=== PATIENT | male | born 1990 | race Caucasian/White ===

== ENCOUNTER 2017-04-26 23:07 | Emergency (ER) | payer OTHER ==
[2017-04-26 23:11] VITALS: BP 135/63; PULSE 117; RESP 18; TEMP 98; O2SAT 96
[2017-04-26] MEDS ORDERED: SODIUM CHLOR 0.9% 1000 ML INJ 1,000 ML IV SCH (23:12)
[2017-04-26] MEDS ORDERED: HALOPERIDOL LACTATE 5 MG/ML AMP IM ONE (23:15)
[2017-04-26] MEDS ORDERED: SODIUM CHLORIDE 0.9% FLUSH 10 ML FLUSH IV FLUSH PRN (23:15)
[2017-04-26] MEDS ORDERED: diphenhydrAMINE HCL 50 MG/ML VIAL IM ONE (23:15)
--- NOTE | 2017-04-26 23:16 | PD ---
HPI Chief Complaint: ams Time Seen by Provider: 23:12 Travel History International Travel<30 days: No Contact w/Intl Traveler<30days: No Traveled to known affect area: No History of Present Illness HPI This is a 26-year-old male who presents via EMS for evaluation of altered mental status. According to EMS the patient was found agitated, combative, fighting with 10 police officers. He received 2 mg of IM Versed prior to arrival. Paramedics report that family members said that he was acting normally 4 hours ago and they know that he has been drinking tonight. They are uncertain about any other ingestion. He had no evidence of trauma. Upon initial examination here he is combative, threatening, screaming, spitting. Shortly after arrival he has started to calm down, likely secondary to Versed effectiveness. No other history is available at this time. [facility] Social History Alcohol Use: Yes Tobacco Use: No (Unknown) Substance Use: No (Unknown) Allergies-Medications (Allergen,Severity, Reaction): Coded Allergies: No Known Allergies (Unverified , 04/26/17) Reported Meds & Prescriptions Reported Meds & Active Scripts Active Active Prescriptions or Reported Medications Unobtainable Review of Systems ROS Limitations: Clinical Condition, Combative Except as stated in HPI: all other systems reviewed are Neg Physical Exam Exam Limitations: Clinical Condition, Combative Narrative GENERAL: Well-developed well-nourished male who is combative, agitated, cursing , spitting on initial examination. Cervical collar is in place. SKIN: Warm and dry. HEAD: Atraumatic. Normocephalic. EYES: Pupils equal and round. No scleral icterus. No injection or drainage. ENT: No nasal bleeding or discharge. Mucous membranes pink and moist. NECK: Trachea midline. No JVD. CARDIOVASCULAR: Regular rate and rhythm. No murmur appreciated. RESPIRATORY: No accessory muscle use. Clear to auscultation. Breath sounds equal bilaterally. GASTROINTESTINAL: Abdomen soft, non-tender, nondistended. Hepatic and splenic margins not palpable. MUSCULOSKELETAL: No obvious deformities. No clubbing. No cyanosis. No edema. NEUROLOGICAL: Awake and alert. No obvious cranial nerve deficits. Motor grossly within normal limits. Data Data Last Documented VS Vital Signs Date Time Temp Pulse Resp B/P (MAP) Pulse Ox O2 Delivery O2 Flow Rate FiO2 04/27/17 01:09 96 15 120/59 (79) 97 Room Air 04/26/17 23:11 98.0 Orders Orders Complete Blood Count With Diff (04/26/17 23:12) Comprehensive Metabolic Panel (04/26/17 23:12) Creatine Kinase (Cpk) (04/26/17 23:12) Thyroid Stimulating Hormone (04/26/17 23:12) Ct Brain W/O Iv Contrast(Rout) (04/26/17 23:12) Blood Glucose (04/26/17 23:12) Ecg Monitoring (04/26/17 23:12) Iv Access Insert/Monitor (04/26/17 23:12) Oximetry (04/26/17 23:12) Sodium Chloride 0.9% Flush (Ns Flush) (04/26/17 23:15) Sodium Chlor 0.9% 1000 Ml Inj (Ns 1000 M (04/26/17 23:12) Drug Screen, Random Urine (04/26/17 23:12) Alcohol (Ethanol) (04/26/17 23:12) Haloperidol Inj (Haldol Inj) (04/26/17 23:15) Diphenhydramine Inj (Benadryl Inj) (04/26/17 23:15) Ct Cerv Spine W/O Contrast (04/26/17 ) CKMB (04/26/17 23:25) CKMB% (04/26/17 23:25) Labs Laboratory Tests Test 04/26/17 23:25 White Blood Count 8.3 TH/MM3 Red Blood Count 4.74 MIL/MM3 Hemoglobin 14.7 GM/DL Hematocrit 40.8 % Mean Corpuscular Volume 86.1 FL Mean Corpuscular Hemoglobin 31.0 PG Mean Corpuscular Hemoglobin Concent 36.0 % Red Cell Distribution Width 13.2 % Platelet Count 263 TH/MM3 Mean Platelet Volume 9.9 FL Neutrophils (%) (Auto) 63.2 % Lymphocytes (%) (Auto) 28.7 % Monocytes (%) (Auto) 5.9 % Eosinophils (%) (Auto) 1.1 % Basophils (%) (Auto) 1.1 % Neutrophils # (Auto) 5.2 TH/MM3 Lymphocytes # (Auto) 2.4 TH/MM3 Monocytes # (Auto) 0.5 TH/MM3 Eosinophils # (Auto) 0.1 TH/MM3 Basophils # (Auto) 0.1 TH/MM3 CBC Comment AUTO DIFF Differential Comment AUTO DIFF CONFIRMED Platelet Estimate NORMAL Platelet Morphology Comment NORMAL Blood Urea Nitrogen 20 MG/DL Creatinine 1.84 MG/DL Random Glucose 110 MG/DL Total Protein 8.5 GM/DL Albumin 4.5 GM/DL Calcium Level 8.9 MG/DL Alkaline Phosphatase 46 U/L Aspartate Amino Transf (AST/SGOT) 32 U/L Alanine Aminotransferase (ALT/SGPT) 27 U/L Total Bilirubin 0.6 MG/DL Sodium Level 138 MEQ/L Potassium Level 3.9 MEQ/L Chloride Level 103 MEQ/L Carbon Dioxide Level 19.5 MEQ/L Anion Gap 16 MEQ/L Estimat Glomerular Filtration Rate 44 ML/MIN Total Creatine Kinase 352 U/L Creatine Kinase MB 1.5 NG/ML Creatine Kinase MB % 0.4 % Thyroid Stimulating Hormone 3rd Gen 1.920 uIU/ML Ethyl Alcohol Level 201 MG/DL [facility] Medical Decision Making Medical Screen Exam Complete: Yes Emergency Medical Condition: Yes Medical Record Reviewed: Yes Differential Diagnosis Sympathomimetic drug abuse versus intoxication versus encephalitis versus closed head injury versus meningitis versus metabolic derangement versus acute psychosis Narrative Course Lab work, CT brain and cervical spine, EKG have been ordered. The patient will be given IV fluids as well as Benadryl, Haldol. CT imaging reveals no acute abnormalities. Lab work is notable for a BUN of 20 , creatinine 1.84, GFR 44, total CK 352, alcohol level 201. The patient will be given IV hydration. He will remain here until he is clinically sober and then he will be discharged. Diagnosis Primary Impression: Alcohol intoxication Med/Other Pt SpecificInfo: No Change to Meds Scripts Unable to Obtain Active Prescriptions or Reported Meds Disposition: 01 DISCHARGE HOME Condition: Stable [place] Apr 26, 2017 23:16
[2017-04-26 23:45] VITALS: RESP 18; O2SAT 96
[2017-04-27 00:06] LABS: AUTOMATED NEUTROPHIL # 5.2 TH/MM3 (1.8-7.7); BASOPHIL # 0.1 TH/MM3 (0-0.2); BASOPHIL % 1.1 % (0.0-2.0); EOSINOPHIL # 0.1 TH/MM3 (0-0.4); EOSINOPHIL % 1.1 % (0.0-4.0); HEMATOCRIT 40.8 % (39.0-51.0); HEMOGLOBIN 14.7 GM/DL (13.0-17.0); LYMPH % 28.7 % (9.0-44.0); LYMPHOCYTE # 2.4 TH/MM3 (1.0-4.8); MEAN CELL VOLUME 86.1 FL (80.0-100.0); MEAN PLATELET VOLUME 9.9 FL (7.0-11.0); MONO % 5.9 % (0.0-8.0); MONOCYTE # 0.5 TH/MM3 (0-0.9); NEUT % 63.2 % (16.0-70.0); PLATELET COUNT 263 TH/MM3 (150-450); RED BLOOD COUNT 4.74 MIL/MM3 (4.50-5.90); RED CELL DISTRIBUTION WIDTH 13.2 % (11.6-17.2); WHITE BLOOD COUNT 8.3 TH/MM3 (4.0-11.0)
[2017-04-27 00:08] LABS: ALT (GPT) 27 U/L (12-78)
[2017-04-27 00:23] LABS: ALBUMIN 4.5 GM/DL (3.4-5.0); ALKALINE PHOSPHATASE 46 U/L (45-117); AST (GOT) 32 U/L (15-37); BICARBONATE 19.5 MEQ/L (21.0-32.0); BLOOD UREA NITROGEN 20 MG/DL (7-18); CALCIUM 8.9 MG/DL (8.5-10.1); CHLORIDE 103 MEQ/L (98-107); CREATININE 1.84 MG/DL (0.60-1.30); GLOMERULAR FILTRATION RATE 44 ML/MIN (>89); GLUCOSE,RANDOM 110 MG/DL (74-106); SODIUM (NA) 138 MEQ/L (136-145); TOTAL BILIRUBIN ADULT 0.6 MG/DL (0.2-1.0); TOTAL PROTEIN 8.5 GM/DL (6.4-8.2)
--- NOTE | 2017-04-27 00:55 | RADRPT ---
EXAM DATE/TIME: 04/27/2017 00:42 [facility] COMPARISON: No previous studies available for comparison. INDICATIONS : Altered mental status. RADIATION DOSE: 56.35 CTDIvol (mGy) MEDICAL HISTORY : None SURGICAL HISTORY : None. ENCOUNTER: Initial ACUITY: 1 day PAIN SCALE: Non-responsive LOCATION: cranial TECHNIQUE: Multiple contiguous axial images were obtained of the head. Using automated exposure control and adj ustment of the mA and/or kV according to patient size, radiation dose was kept as low as reasonably a chievable to obtain optimal diagnostic quality images. DICOM format image data is available electro nically for review and comparison. FINDINGS: CEREBRUM: The ventricles are normal for age. No evidence of midline shift, mass lesion, hemorrhage or acute in farction. No extra-axial fluid collections are seen. POSTERIOR FOSSA: The cerebellum and brainstem are intact. The 4th ventricle is midline. The cerebellopontine angle i s unremarkable. EXTRACRANIAL: The visualized portion of the orbits is intact. SKULL: The calvaria is intact. No evidence of skull fracture. CONCLUSION: Normal examination. Jared Espana Jr., MD on April 27, 2017 at 0:53 Board Certified Radiologist. This report was verified electronically.
--- NOTE | 2017-04-27 01:00 | RADRPT ---
EXAM DATE/TIME: 04/27/2017 00:42 [facility] COMPARISON: No previous studies available for comparison. INDICATIONS : Neck pain. RADIATION DOSE: 37.31 CTDIvol (mGy) MEDICAL HISTORY : None SURGICAL HISTORY : None. ENCOUNTER: Initial ACUITY: 1 day PAIN SCALE: Non-responsive LOCATION: neck TECHNIQUE: Volumetric scanning of the cervical spine was performed. Multiplanar reconstructions in the sagittal, coronal and oblique axial planes were performed. Using automated exposure control and adjustment o f the mA and/or kV according to patient size, radiation dose was kept as low as reasonably achievable to obtain optimal diagnostic quality images. DICOM format image data is available electronically f or review and comparison. FINDINGS: VERTEBRAE: Normal vertebral body height. Bridging anterior osteophytes at C3-C4, C5-C6, and C6-C7. ALIGNMENT: No evidence of subluxation. C2-C3: The bony spinal canal is normal in size. No evidence of disc bulge or herniation. The neural forami na are bilaterally patent. C3-C4: The bony spinal canal is normal in size. No evidence of disc bulge or herniation. The neural forami na are bilaterally patent. C4-C5: The bony spinal canal is normal in size. No evidence of disc bulge or herniation. The neural forami na are bilaterally patent. C5-C6: The bony spinal canal is normal in size. No evidence of disc bulge or herniation. The neural forami na are bilaterally patent. C6-C7: The bony spinal canal is normal in size. No evidence of disc bulge or herniation. The neural forami na are bilaterally patent. C7-T1: The bony spinal canal is normal in size. No evidence of disc bulge or herniation. The neural forami na are bilaterally patent. CONCLUSION: No acute disease. Jared Espana Jr., MD on April 27, 2017 at 0:56 Board Certified Radiologist. This report was verified electronically.
[2017-04-27 01:09] VITALS: BP 120/59; PULSE 96; RESP 15; O2SAT 97
[2017-04-27 06:19] VITALS: BP 149/71
== END 2017-04-27 06:21 | disposition home or self-care (01) ==
LOC: NEPD 23:07
DX: F10.129 Alcohol abuse with intoxication, unspecified (principal); Y90.7 Blood alcohol level of 200-239 mg/100 ml
CPT/HCPCS: 70450; 72125; 80053; 80307; 82550; 82552; 84443; 85025; 96360; 99284; J7030